=== PATIENT | female | born 1985 | race Caucasian/White ===

== ENCOUNTER 2019-09-09 12:11 | Emergency (ER) | payer SELFPAY ==
[~2019-09-09] VITALS: Ht 160 cm; Wt 49.9 kg
[2019-09-09 12:26] VITALS: BP 115/75
--- NOTE | 2019-09-09 12:58 | NUR ---
Patient returned to ED lobby following XRAY completion.
--- NOTE | 2019-09-09 13:46 | NUR ---
PT TO ER BED 4
--- NOTE | 2019-09-09 14:19 | NUR ---
33YO F C/O LEFT WRIST PAIN S/P DISLOCATION LAST NIGHT. PT IS A KNOWN CASE OF EHLER DANLOS SYNROME. PT STATES THAT SHE WAS SIMPLY MOVING HERSELF TO A DIFFERENT POSITION WHEN SHE DISLOCATED HER WRIST. PAIN 6/10 RADIATING TO HER HAND, ARM, NECK AND BASE OF SKULL. IBUPROFEN TAKEN AT 10AM THIS MORNING, WHICH PROVIDED TEMP RELIEF. PT REPORTS NUMBNESS OF L EXTREMITY. CR >4SECS. ABLE TO MOVE EXTREMITY WITH MILD PAIN; VSS; PATIENT POSITIONED FOR COMFORT; HOB ELEVATED; BEDRAILS UP X2; BED DOWN. ER MD MADE AWARE OF PT STATUS. ALLERGY: ASPIRIN PMH: EDS, POTS, ARTHRITIS, ENDOMETRIOSIS MEDS: GABAPENTIN, BACLOFEN
[2019-09-09] MEDS ORDERED: KETOROLAC 30 MG/ML VIAL IM ONE (15:10)
--- NOTE | 2019-09-09 15:16 | NUR ---
ATTEMPTED TO PLACE VELCRO SPLINT ON PATIENT. PATIENT EXPRESSED SHE DID NOT WANT THE SPLINT BECAUSE IT WAS TOO BIG. MD AND RN MADE AWARE.
[2019-09-09 15:33] VITALS: BP 115/75
== END 2019-09-09 15:30 | disposition home or self-care (01) ==
LOC: MED 12:11
DX: M25.532 Pain in left wrist (principal); Q79.60 Ehlers-Danlos syndrome, unspecified; Z88.6 Allergy status to analgesic agent
CPT/HCPCS: 29125; 73110; 96372; 99283; J1885

== ENCOUNTER 2020-02-22 15:38 | Emergency (ER) | payer MEDICAID ==
[~2020-02-22] VITALS: Ht 160 cm; Wt 45.4 kg
--- NOTE | 2020-02-22 15:38 | NUR ---
Patient BIBA BLS, transferred to bed 7. RN evaluating patient at bedside.
[2020-02-22 15:40] VITALS: BP 105/85
--- NOTE | 2020-02-22 15:45 | NUR ---
34 Y/O FEMALE BIBA FROM HOME C/O N/V/D AND ABD PAIN X 4 DAYS. PER PT SHE HAS HAD MANY ABD ISSUES IN THE PAST AND WAS SUPPOSED TO HAVE ENDOSCOPY BUT GOT CANCELED. STATES SHE HAS BEEN TAKING PRILOSEC "FOR A LONG TIME". PT GUARDING ABD. STATES INCREASED NAUSEA AT THIS TIME. PT APPEARS ANXIOUS. RR EVEN AND TACHYPNIC. MEDHX: POTS, EPS, ASTHMA
[2020-02-22] MEDS ORDERED: PROCHLORPERAZINE 10 MG/2 ML VIAL IVP ONE (16:00)
[2020-02-22] MEDS ORDERED: KETOROLAC 30 MG/ML VIAL IVP ONE (16:00)
[2020-02-22] MEDS ORDERED: NACL 0.9% 1,000 ML IV ONE ×3 (16:00→18:30)
[2020-02-22 16:45] LABS: BASOPHILS # (AUTO) 0.1 K/uL (0.00-0.22); BASOPHILS % (AUTO) 0.8 % (0.0-2.0); EOSINOPHILS % (AUTO) 0.3 % (0.0-4.0); HEMATOCRIT 42.9 % (36-48); LYMPHOCYTES # (AUTO) 1.4 K/uL (2.5-16.5); LYMPHOCYTES % (AUTO) 17.9 % (20.5-51.1); MEAN CORPUSCULAR HEMOGLOBIN 30 pg (27-31); MEAN CORPUSCULAR HGB CONC 33 g/dL (33-37); MEAN CORPUSCULAR VOLUME 91.1 fL (80-94); MONOCYTES # (AUTO) 0.3 K/uL (0.8-1.0); MONOCYTES % (AUTO) 3.8 % (1.7-9.3); NEUTROPHILS # (AUTO) 6.2 K/uL (1.8-7.7); NEUTROPHILS % (AUTO) 77.2 % (42.2-75.2); PLATELET COUNT (AUTO) 304 K/uL (140-450); RED BLOOD CELL COUNT(AUTO) 4.71 MIL/uL (4.20-5.40); RED CELL DISTRIBUTION WIDTH 13.8 % (11.6-13.7); WHITE BLOOD COUNT (AUTO) 8.1 K/uL (4.8-10.8)
[2020-02-22 16:55] LABS: ANION GAP 15.4 (8-16); CARBON DIOXIDE 24.4 mmol/L (21-32); CREATININE 0.9 mg/dL (0.6-1.3); POTASSIUM 3.8 mmol/L (3.5-5.1)
--- NOTE | 2020-02-22 16:55 | NUR ---
PT RESTING IN BED, SIDE RAIL X1
[2020-02-22 17:01] LABS: ALBUMIN 4.4 g/dL (3.4-5.0); TOTAL BILIRUBIN 0.4 mg/dL (0.0-1.0)
[2020-02-22] MEDS ORDERED: PANTOPRAZOLE 40 MG INJ VIAL IVP ONE (17:10)
[2020-02-22] MEDS ORDERED: LOPERAMIDE 2 MG CAP PO ONE (17:20)
[2020-02-22] MEDS ORDERED: LORazepam 2 MG/ML VIAL IVP ONE (18:40)
--- NOTE | 2020-02-22 19:16 | NUR ---
REPORT RECEIVED FROM SID HOGAN FOR CONTINUATION OF CARE.
--- NOTE | 2020-02-22 19:17 | NUR ---
REPORT GIVEN TO TIARA LAU FOR CONTINUITY OF CARE
--- NOTE | 2020-02-22 19:50 | NUR ---
PT STATES SHE WILL CALL FOR AN UBER OR RIDE HOME, PT STATES SHE IS OKAY TO WAIT IN THE LOBBY FOR HER RIDE.
[2020-02-22 19:54] VITALS: BP 110/82
--- NOTE | 2020-02-22 19:54 | NUR ---
Patient discharged with v/s stable. Written and verbal after care instructions given and explained. Patient alert, oriented and verbalized understanding of instructions. Ambulatory with steady gait. All questions addressed prior to discharge. ID band removed. Patient advised to follow up with PMD. Rx of BENTYL AND IMODIUM given. Patient educated on indication of medication including possible reaction and side effects. Opportunity to ask questions provided and answered.
--- NOTE | 2020-02-27 08:23 | NUR ---
LATE ENTRY- NORMAL SALINE 0.9% IV DISCONTINUED AT 1953.
== END 2020-02-22 19:54 | disposition home or self-care (01) ==
LOC: MED 15:38
DX: R11.10 Vomiting, unspecified (principal); R19.7 Diarrhea, unspecified; R00.0 Tachycardia, unspecified; F41.9 Anxiety disorder, unspecified; J45.909 Unspecified asthma, uncomplicated; Z88.6 Allergy status to analgesic agent; Z88.8 Allergy status to other drugs, medicaments and biological substances
CPT/HCPCS: 36415; 80053; 83690; 85025; 93005; 96361; 96374; 96375; 99284; C9113; J0780; J1885; J2060; J7030

== ENCOUNTER 2021-04-04 18:12 | Emergency (ER) | payer MEDICAID ==
[~2021-04-04] VITALS: Ht 160 cm; Wt 54.4 kg
[2021-04-04 18:26] VITALS: BP 119/72
--- NOTE | 2021-04-04 18:33 | NUR ---
PT AMBULATED TO BED 3.
--- NOTE | 2021-04-04 18:34 | NUR ---
DR SANCHEZ EXAMINING PT
[2021-04-04] MEDS ORDERED: DEXAMETHASONE 10 MG/ML VIAL IVP ONE (18:35)
[2021-04-04] MEDS ORDERED: FAMOTIDINE 20 MG/2 ML VIAL IVP ONE (18:35)
[2021-04-04] MEDS ORDERED: diphenhydrAMINE 50 MG/ML VIAL IVP ONE (18:35)
--- NOTE | 2021-04-04 18:43 | NUR ---
35/F BIB SELF C/O ALLERGIC REACTION. STATES SHE ACCIDENTALLY WAS SERVED SHRIMP AT A [facility] AND BEGAN HAVING THROAT ITCHINESS AND TIGHTNESS. DENIES RASH OR SHORTNESS OF BREATH, NO TONGUE SWELLING NOTED. DENIES ANY PAIN. MEDHX: LATE STAGE LYME DISEASE, ISAAC-DANLOS SYNDROME, POTS ALLERGIES: ASPIRIN, IODINE
--- NOTE | 2021-04-04 18:59 | NUR ---
PATIENT REFUSED DECADRON MEDICATION. STATES "I HAVE BAD ANXIETY AND HAVE HAD A BAD REACTION TO STEROIDS BEFORE" DR SANCHEZ MADE AWARE
--- NOTE | 2021-04-04 19:14 | NUR ---
Pt report given to MARGARITA LAU. Transfer of care at this time.
--- NOTE | 2021-04-04 21:30 | NUR ---
Patient discharged with v/s stable. Written and verbal after care instructions given and explained. Patient verbalized understanding. Ambulatory with steady gait. All questions addressed prior to discharge. Advised to follow up with PMD.
== END 2021-04-04 21:30 | disposition home or self-care (01) ==
LOC: MED 18:12
DX: T78.40XA Allergy, unspecified, initial encounter (principal); R10.84 Generalized abdominal pain; X58.XXXA Exposure to other specified factors, initial encounter
CPT/HCPCS: 96374; 96375; 99284; J1200; J3490; J1100

== ENCOUNTER 2021-08-14 15:19 | Emergency (ER) | payer MEDICAID ==
[~2021-08-14] VITALS: Ht 160 cm; Wt 55.5 kg
[2021-08-14 15:49] VITALS: BP 96/62
--- NOTE | 2021-08-14 15:53 | NUR ---
NIGHAT. HANDED ON URINE CUP.
[2021-08-14 17:48] LABS: BASOPHILS % (AUTO) 0.4 % (0.0-2.0); EOSINOPHILS % (AUTO) 0.3 % (0.0-4.0); HEMATOCRIT 36.2 % (36-48); HEMOGLOBIN 11.9 g/dL (12.0-16.0); LYMPHOCYTES # (AUTO) 1.3 K/uL (2.5-16.5); LYMPHOCYTES % (AUTO) 22.6 % (20.5-51.1); MEAN CORPUSCULAR HEMOGLOBIN 27 pg (27-31); MEAN CORPUSCULAR HGB CONC 33 g/dL (33-37); MEAN CORPUSCULAR VOLUME 83.2 fL (80-94); MONOCYTES # (AUTO) 0.3 K/uL (0.8-1.0); MONOCYTES % (AUTO) 5.1 % (1.7-9.3); NEUTROPHILS # (AUTO) 4.2 K/uL (1.8-7.7); NEUTROPHILS % (AUTO) 71.6 % (42.2-75.2); PLATELET COUNT (AUTO) 291 K/uL (140-450); RED BLOOD CELL COUNT(AUTO) 4.34 MIL/uL (4.20-5.40); RED CELL DISTRIBUTION WIDTH 17.1 % (11.6-13.7); WHITE BLOOD COUNT (AUTO) 5.9 K/uL (4.8-10.8)
[2021-08-14 17:50] LABS: ANION GAP 11.2 (8-16); CARBON DIOXIDE 26.6 mmol/L (21-32); CREATININE 0.7 mg/dL (0.6-1.3); POTASSIUM 4.8 mmol/L (3.5-5.1); TOTAL BILIRUBIN 0.3 mg/dL (0.0-1.0)
[2021-08-14] MEDS ORDERED: MECL-303 PO (18:24)
[2021-08-14 19:37] VITALS: BP 96/62
[2021-08-15 01:32] LABS: APPEARANCE,URINE CLEAR (CLEAR); BILIRUBIN,URINE NEGATIVE (NEGATIVE); BLOOD, URINE NEGATIVE (NEGATIVE); COLOR,URINE YELLOW (YELLOW); LEUKOCYTE ESTERASE ,URINE NEGATIVE (NEGATIVE); NITRITE, URINE NEGATIVE (NEGATIVE); PH,URINE 6.5 (5.0-9.0); UGLUCOSE NEGATIVE (NEGATIVE)
== END 2021-08-14 19:37 | disposition home or self-care (01) ==
LOC: MED 15:19
DX: R42 Dizziness and giddiness (principal); R22.1 Localized swelling, mass and lump, neck; R51.9 Headache, unspecified; J45.909 Unspecified asthma, uncomplicated; Z88.6 Allergy status to analgesic agent; Z88.8 Allergy status to other drugs, medicaments and biological substances
CPT/HCPCS: 36415; 71045; 80053; 81003; 85025; 99284